=== PATIENT | female | born 1990 | race Caucasian/White ===

== ENCOUNTER 2017-10-02 18:38 | Emergency (ER) | payer MEDICAID ==
[~2017-10-02] VITALS: Ht 157.5 cm; Wt 146.7 kg
[2017-10-02 18:43] VITALS: BP 122/87
== END 2017-10-02 20:29 | disposition home or self-care (01) ==
LOC: ED 20:23
DX: M25.572 Pain in left ankle and joints of left foot (principal); M25.562 Pain in left knee; E66.01 Morbid (severe) obesity due to excess calories; Z68.43 Body mass index [BMI] 50.0-59.9, adult
CPT/HCPCS: 99284